=== PATIENT | male | born 1990 | race Caucasian/White ===

== ENCOUNTER 2017-08-09 11:09 | Emergency (ER) | payer MEDICARE ==
[~2017-08-09] VITALS: Ht 172.7 cm; Wt 84.1 kg
[2017-08-09] MEDS ORDERED: OLAN5TAB2 PO (11:13)
[2017-08-09 12:49] VITALS: BP 146/88
== END 2017-08-09 13:17 | disposition home or self-care (01) ==
LOC: EMS 11:11
DX: L08.9 Local infection of the skin and subcutaneous tissue, unspecified (principal); R03.0 Elevated blood-pressure reading, without diagnosis of hypertension; F17.210 Nicotine dependence, cigarettes, uncomplicated
CPT/HCPCS: 99283

== ENCOUNTER 2017-09-16 19:47 | Inpatient (IN) | payer MEDICARE, MEDICAID ==
[~2017-09-16] VITALS: Ht 172.7 cm; Wt 86.4 kg
[~2017-09-16 19:47] MED LIST: OLAN5TAB2 PO
[2017-09-16] MEDS ORDERED: OLAN10TA3 PO (20:04)
[2017-09-16 20:23] LABS: AMPHET/METH SCREEN,URINE NEGATIVE (NEGATIVE); BARBITURATE SCREEN, URINE NEGATIVE (NEGATIVE); BENZODIAZEPINES SCREEN,URINE NEGATIVE (NEGATIVE); CANNABINOID SCREEN,URINE NEGATIVE (NEGATIVE); COCAINE SCREEN,URINE NEGATIVE (NEGATIVE); METHADONE SCREEN, URINE NEGATIVE (NEGATIVE); OPIATE SCREEN,URINE NEGATIVE (NEGATIVE)
[2017-09-16 20:25] LABS: PHENCYCLIDINE SCREEN,URINE NEGATIVE (NEGATIVE)
[2017-09-16 20:35] LABS: BASOPHILS % (AUTO) 0.6 % (0.0-2.0); EOSINOPHILS % (AUTO) 1.4 % (1.0-6.0); HEMATOCRIT 44.1 % (41-53); HEMOGLOBIN 15.7 g/dL (13.5-17.5); LYMPHOCYTES # (AUTO) 1.6 K/uL (1.0-4.8); LYMPHOCYTES % (AUTO) 23.7 % (22.0-44.0); MEAN CORPUSCULAR HEMOGLOBIN 28.9 pg (26.0-34.0); MEAN CORPUSCULAR HGB CONC 35.6 G/dL (31.0-37.0); MEAN CORPUSCULAR VOLUME 81 fL (80-100); MONOCYTES # (AUTO) 0.7 K/uL (0.1-1.0); MONOCYTES % (AUTO) 10.1 % (2.0-9.0); NEUTROPHILS # (AUTO) 4.5 K/uL (1.8-7.7); NEUTROPHILS % (AUTO) 64.2 % (40.0-70.0); PLATELET COUNT (AUTO) 274 K/uL (150-450); RED BLOOD CELL COUNT(AUTO) 5.42 MIL/uL (4.50-5.90); RED CELL DISTRIBUTION WIDTH 16.5 % (11.5-14.5)
[2017-09-16] MEDS ORDERED: HALOPERIDOL 5 MG TABLET PO ONE (20:45)
[2017-09-16] MEDS ORDERED: ZOLPIDEM TARTRATE 10 MG TABLET PO PRN (20:45)
[2017-09-16] MEDS ORDERED: DiphenhydrAMINE HCL 25 MG CAPSULE PO ONE (20:45)
[2017-09-16] MEDS ORDERED: LORazepam 2 MG TABLET PO PRN (20:45)
[2017-09-16] MEDS ORDERED: LORazepam 2 MG TABLET PO ONE (20:45)
[2017-09-16] MEDS ORDERED: OLANZapine 5 MG RAPDIS TABLET PO PRN (20:45)
[2017-09-16 20:48] LABS: ANION GAP 7 mmol/L (8-16); CARBON DIOXIDE 29 mmol/L (22-29); CHLORIDE 102 mmol/L (98-107); CREATININE 1.03 mg/dL (0.60-1.30); GLOMERULAR FILTR. RATE CALC > 60 mL/min (>60); GLUCOSE,RANDOM 89 mg/dL (70-110); POTASSIUM 3.7 mmol/L (3.5-5.1); SODIUM SERUM 138 mmol/L (136-145); UREA NITROGEN, BLOOD 9 mg/dL (7-18)
[2017-09-16 20:56] LABS: ALANINE AMINOTRANSFERASE 98 U/L (12-78); ALBUMIN 4.1 g/dL (3.4-5.0); ALKALINE PHOSPHATASE 74 U/L (46-116); ASPARTATE AMINOTRANSFERASE 47 U/L (15-37); BILIRUBIN,TOTAL 0.5 mg/dL (0.1-1.0); TOTAL PROTEIN, SERUM 7.7 g/dL (6.4-8.2)
[2017-09-16 21:47] LABS: HEMOGLOBIN A1C 4.9 % (4.5-6.2)
[2017-09-16 21:55] LABS: CHOLESTEROL 139 mg/dL (131-200); FREE T4 (FREE THYROXINE) 1.03 ng/dL (0.76-1.46); HDL CHOLESTEROL 35 mg/dL (40-60); LDL CHOL (CALC.) 93 mg/dL (0-130); THYROID STIMULATING HORMONE 2.17 uIU/mL (0.36-3.74); TRIGLYCERIDES 56 mg/dL (15-150)
[2017-09-17] MEDS ORDERED: CloNIDine HCL 0.1 MG TABLET PO PRN (00:15)
[2017-09-17] MEDS ORDERED: IBUPROFEN 600 MG TABLET PO PRN (00:15)
[2017-09-17] MEDS ORDERED: ACETAMINOPHEN 325 MG TABLET PO PRN (00:15)
[2017-09-17 02:35] VITALS: BP 125/78
[2017-09-17 11:30] VITALS: BP 127/87
[2017-09-17] MEDS: OLANZapine 10 MG TABLET PO SCH (20:28)
[2017-09-17 23:11] VITALS: BP 127/59
[2017-09-18 08:12] VITALS: BP 130/68
[2017-09-18 08:17] LABS: HEMOGLOBIN A1C 4.6 % (4.5-6.2)
[2017-09-18 08:26] LABS: ALANINE AMINOTRANSFERASE 77 U/L (12-78); ALBUMIN 3.9 g/dL (3.4-5.0); ALKALINE PHOSPHATASE 66 U/L (46-116); ANION GAP 7 mmol/L (8-16); ASPARTATE AMINOTRANSFERASE 35 U/L (15-37); BILIRUBIN,TOTAL 0.6 mg/dL (0.1-1.0); CALCIUM, TOTAL 8.7 mg/dL (8.8-10.5); CARBON DIOXIDE 26 mmol/L (22-29); CHLORIDE 105 mmol/L (98-107); GLOMERULAR FILTR. RATE CALC > 60 mL/min (>60); GLUCOSE,RANDOM 87 mg/dL (70-110); POTASSIUM 3.9 mmol/L (3.5-5.1); SODIUM SERUM 138 mmol/L (136-145); TOTAL PROTEIN, SERUM 7.3 g/dL (6.4-8.2); UREA NITROGEN, BLOOD 14 mg/dL (7-18)
[2017-09-18 08:49] LABS: CHOL/HDL RATIO 4.5 (4.2-7.3); CHOLESTEROL 134 mg/dL (131-200); CREATINE KINASE MB 1.3 ng/mL (0-5); CREATINE KINASE, TOTAL 152 U/L (39-308); FREE T4 (FREE THYROXINE) 0.93 ng/dL (0.76-1.46); HDL CHOLESTEROL 30 mg/dL (40-60); LDL CHOL (CALC.) 87 mg/dL (0-130); THYROID STIMULATING HORMONE 1.23 uIU/mL (0.36-3.74); TRIGLYCERIDES 85 mg/dL (15-150)
[2017-09-18 12:29] LABS: FOLATE SERUM 10.4 ng/mL (5.4-)
[2017-09-18 17:00] VITALS: BP 111/71
[2017-09-18] MEDS: OLANZapine 10 MG TABLET PO SCH (20:13)
[2017-09-19 08:30] VITALS: BP 135/75
[2017-09-19] MEDS ORDERED: BISACODYL 5 MG EC TABLET PO PRN (09:15)
[2017-09-19 17:00] VITALS: BP 121/63
[2017-09-19] MEDS: OLANZapine 10 MG TABLET PO SCH (21:01)
[2017-09-20 09:39] VITALS: BP 128/78
[2017-09-20] MEDS: FLUoxetine HCL 20 MG CAPSULE PO SCH (12:28)
[2017-09-20 17:00] VITALS: BP 112/67
[2017-09-20] MEDS: OLANZapine 10 MG TABLET PO SCH (20:51)
[2017-09-21] MEDS: FLUoxetine HCL 20 MG CAPSULE PO SCH (09:10)
[2017-09-21 10:27] VITALS: BP 138/75
[2017-09-21 17:00] VITALS: BP 109/61
[2017-09-21] MEDS: OLANZapine 10 MG TABLET PO SCH (20:47)
[2017-09-22 08:14] VITALS: BP 131/79
[2017-09-22] MEDS: FLUoxetine HCL 20 MG CAPSULE PO SCH (09:07)
[2017-09-22 16:30] VITALS: BP 117/64
[2017-09-22] MEDS: OLANZapine 10 MG TABLET PO SCH (20:10)
[2017-09-23 08:00] VITALS: BP 122/72
[2017-09-23] MEDS: FLUoxetine HCL 20 MG CAPSULE PO SCH (08:40)
[2017-09-23 18:38] VITALS: BP 127/75
[2017-09-23] MEDS: OLANZapine 10 MG TABLET PO SCH (20:10)
[2017-09-24 09:00] VITALS: BP 122/73
[2017-09-24] MEDS: FLUoxetine HCL 20 MG CAPSULE PO SCH (09:44)
[2017-09-24 17:53] VITALS: BP 113/67
[2017-09-24] MEDS: OLANZapine 10 MG TABLET PO SCH (20:07)
[2017-09-25] MEDS: FLUoxetine HCL 20 MG CAPSULE PO SCH (08:21)
[2017-09-25 09:37] VITALS: BP 127/77
[2017-09-25 17:33] VITALS: BP 122/68
[2017-09-25] MEDS: OLANZapine 10 MG TABLET PO SCH (20:11)
[2017-09-26 08:23] VITALS: BP 144/80
[2017-09-26] MEDS: FLUoxetine HCL 20 MG CAPSULE PO SCH (09:43)
[2017-09-26 19:33] VITALS: BP 131/76
[2017-09-26] MEDS: OLANZapine 10 MG TABLET PO SCH (20:18)
[2017-09-27 08:30] VITALS: BP 137/79
[2017-09-27] MEDS: FLUoxetine HCL 20 MG CAPSULE PO SCH (09:07)
[2017-09-27 16:52] VITALS: BP 129/72
[2017-09-27] MEDS: OLANZapine 10 MG TABLET PO SCH (20:38)
[2017-09-28 08:00] VITALS: BP 131/64
[2017-09-28] MEDS: FLUoxetine HCL 20 MG CAPSULE PO SCH (08:52)
[2017-09-28 18:53] VITALS: BP 107/67
[2017-09-28] MEDS: OLANZapine 10 MG TABLET PO SCH (20:23)
[2017-09-29 08:00] VITALS: BP 136/65
[2017-09-29] MEDS: FLUoxetine HCL 20 MG CAPSULE PO SCH (08:37)
[2017-09-29 16:49] VITALS: BP 121/78
[2017-09-29] MEDS: OLANZapine 10 MG TABLET PO SCH (20:02)
[2017-09-30] MEDS: FLUoxetine HCL 20 MG CAPSULE PO SCH (08:23)
[2017-09-30 09:03] VITALS: BP 132/60
[2017-09-30] MEDS: OLANZapine 10 MG TABLET PO SCH (20:03)
[2017-09-30 20:24] VITALS: BP 123/73
[2017-10-01] MEDS: FLUoxetine HCL 20 MG CAPSULE PO SCH (08:53)
[2017-10-01 09:30] VITALS: BP 114/61
[2017-10-01 18:22] VITALS: BP 120/65
[2017-10-01] MEDS: OLANZapine 10 MG TABLET PO SCH (20:22)
[2017-10-02 08:12] VITALS: BP 137/82
[2017-10-02] MEDS: FLUoxetine HCL 20 MG CAPSULE PO SCH (08:47)
[2017-10-02 18:42] VITALS: BP 125/72
[2017-10-02] MEDS: OLANZapine 10 MG TABLET PO SCH (20:23)
[2017-10-03 08:30] VITALS: BP 126/76
[2017-10-03] MEDS: FLUoxetine HCL 20 MG CAPSULE PO SCH (10:17)
[2017-10-03 17:22] VITALS: BP 116/74
[2017-10-03 17:22] LABS: GLUCOMETER DEV NAME(LOC) 3EI B; GLUCOSE,POINT OF CARE 106 MG/DL (70-110)
[2017-10-03] MEDS: OLANZapine 10 MG TABLET PO SCH (20:40)
[2017-10-04] MEDS: FLUoxetine HCL 20 MG CAPSULE PO SCH (08:25)
[2017-10-04 10:04] VITALS: BP 130/82
[2017-10-04 17:59] VITALS: BP 112/72
[2017-10-04] MEDS: OLANZapine 10 MG TABLET PO SCH (20:22)
[2017-10-05] MEDS ORDERED: FLUO-191 PO (04:58)
[2017-10-05] MEDS: FLUoxetine HCL 20 MG CAPSULE PO SCH (08:16)
[2017-10-05 09:09] VITALS: BP 131/82
== END 2017-10-05 10:20 | disposition home or self-care (01) | DRG 885 ==
LOC: EMS 19:48 → 3EX 21:56
PROVIDERS: ADMIT Psychiatry & Neurology Psychiatry; ATTEND Psychiatry & Neurology Psychiatry
DX: F20.0 Paranoid schizophrenia (principal); R45.851 Suicidal ideations; I10 Essential (primary) hypertension; K59.00 Constipation, unspecified; F17.210 Nicotine dependence, cigarettes, uncomplicated; F15.90 Other stimulant use, unspecified, uncomplicated; R79.89 Other specified abnormal findings of blood chemistry; R00.0 Tachycardia, unspecified
CPT/HCPCS: 80074; 82306; 82607; 82746; 83036; 83735; 84439; 84443; 99285; 99406; G0480

== ENCOUNTER 2018-07-19 12:12 | Inpatient (IN) | payer MEDICARE, MEDICAID ==
[~2018-07-19] VITALS: Ht 170.2 cm; Wt 68.2 kg
[~2018-07-19 12:12] MED LIST changes: +FLUO-191 PO; +OLAN10TA3 PO; -OLAN5TAB2 PO
[2018-07-19 15:42] VITALS: BP 102/60
[2018-07-19] MEDS ORDERED: HALOPERIDOL 5 MG TABLET PO PRN (16:30)
[2018-07-19] MEDS ORDERED: ZOLPIDEM TARTRATE 10 MG TABLET PO PRN (16:30)
[2018-07-19 19:33] VITALS: BP 135/78
[2018-07-19] MEDS ORDERED: GuaiFENesin/D-METHORPHAN [SUGAR-FREE] 200-20MG/10 ML SYRUP UDCUP PO PRN (19:45)
[2018-07-19] MEDS ORDERED: CloNIDine HCL 0.1 MG TABLET PO PRN (19:45)
[2018-07-19] MEDS ORDERED: IBUPROFEN 400 MG TABLET PO PRN (19:45)
[2018-07-19] MEDS ORDERED: MAG HYDROX/AL HYDROX/SIMETH ES 30 ML SUSPENSION UDCUP PO PRN (19:45)
[2018-07-19] MEDS ORDERED: NICOTINE 14 MG/24 HOUR PATCH TD PRN (19:45)
[2018-07-19] MEDS ORDERED: ONDANSETRON HCL 4 MG TABLET PO PRN (19:45)
[2018-07-19] MEDS ORDERED: MAGNESIUM HYDROXIDE SUSPENSION 30 ML UDCUP PO PRN (19:45)
[2018-07-19] MEDS ORDERED: LOPERAMIDE HCL 2 MG CAPSULE PO PRN (19:45)
[2018-07-19] MEDS ORDERED: DOCUSATE SODIUM 100 MG CAPSULE PO PRN (19:45)
[2018-07-19] MEDS ORDERED: ALBUTEROL SULFATE HFA 90 MCG/PUFF 8 GM INHALER IH PRN (19:45)
[2018-07-19] MEDS ORDERED: PETROLATUM,WHITE 71 GM JELLY TP PRN (19:45)
[2018-07-19] MEDS ORDERED: ACETAMINOPHEN 325 MG TABLET PO PRN (19:45)
[2018-07-20 06:41] VITALS: BP 132/81
[2018-07-20 08:37] VITALS: BP 115/60
[2018-07-20 09:00] LABS: BASOPHILS % (AUTO) 0.4 % (0.0-2.0); EOSINOPHILS % (AUTO) 1.8 % (1.0-6.0); HEMATOCRIT 37.5 % (41-53); HEMOGLOBIN 12.5 g/dL (13.5-17.5); LYMPHOCYTES # (AUTO) 1.5 K/uL (1.0-4.8); LYMPHOCYTES % (AUTO) 39.2 % (22.0-44.0); MEAN CORPUSCULAR HEMOGLOBIN 26.7 pg (26.0-34.0); MEAN CORPUSCULAR HGB CONC 33.2 G/dL (31.0-37.0); MEAN CORPUSCULAR VOLUME 81 fL (80-100); MONOCYTES # (AUTO) 0.4 K/uL (0.1-1.0); MONOCYTES % (AUTO) 10.7 % (2.0-9.0); NEUTROPHILS # (AUTO) 1.9 K/uL (1.8-7.7); NEUTROPHILS % (AUTO) 47.9 % (40.0-70.0); PLATELET COUNT (AUTO) 234 K/uL (150-450); RED BLOOD CELL COUNT(AUTO) 4.66 MIL/uL (4.50-5.90); RED CELL DISTRIBUTION WIDTH 16.9 % (11.5-14.5)
[2018-07-20 09:42] LABS: ALANINE AMINOTRANSFERASE 17 U/L (12-78); ALBUMIN 3.3 g/dL (3.4-5.0); ALKALINE PHOSPHATASE 54 U/L (46-116); ANION GAP 5 mmol/L (8-16); ASPARTATE AMINOTRANSFERASE 14 U/L (15-37); BILIRUBIN,TOTAL 0.3 mg/dL (0.1-1.0); CALCIUM, TOTAL 8.9 mg/dL (8.8-10.5); CARBON DIOXIDE 29 mmol/L (22-29); CHLORIDE 108 mmol/L (98-107); CHOL/HDL RATIO 3.4 (4.2-7.3); CHOLESTEROL 89 mg/dL (131-200); CREATININE 0.75 mg/dL (0.60-1.30); FREE T4 (FREE THYROXINE) 0.94 ng/dL (0.76-1.46); GLOMERULAR FILTR. RATE CALC > 60 mL/min (>60); GLUCOSE,RANDOM 79 mg/dL (70-110); HDL CHOLESTEROL 26 mg/dL (40-60); LDL CHOL (CALC.) 55 mg/dL (0-130); POTASSIUM 4.7 mmol/L (3.5-5.1); SODIUM SERUM 142 mmol/L (136-145); THYROID STIMULATING HORMONE 0.99 uIU/mL (0.36-3.74); TOTAL PROTEIN, SERUM 6.5 g/dL (6.4-8.2); TRIGLYCERIDES 40 mg/dL (15-150); UREA NITROGEN, BLOOD 12 mg/dL (7-18)
[2018-07-20] MEDS: FLUoxetine HCL 20 MG CAPSULE PO SCH (11:45)
[2018-07-20 16:05] VITALS: BP 120/70
[2018-07-20] MEDS: OLANZapine 10 MG TABLET PO SCH (20:59)
[2018-07-21 05:00] VITALS: BP 112/62
[2018-07-21 08:11] VITALS: BP 109/69
[2018-07-21] MEDS: LORazepam 2 MG TABLET PO PRN (08:43)
[2018-07-21] MEDS: FLUoxetine HCL 20 MG CAPSULE PO SCH (08:43)
[2018-07-21 16:14] VITALS: BP 105/62
[2018-07-21] MEDS: OLANZapine 10 MG TABLET PO SCH (20:38)
[2018-07-22 05:58] VITALS: BP 124/82
[2018-07-22 08:10] VITALS: BP 107/55
[2018-07-22] MEDS: LORazepam 2 MG TABLET PO PRN (08:34)
[2018-07-22] MEDS: FLUoxetine HCL 20 MG CAPSULE PO SCH (08:34)
[2018-07-22 16:43] VITALS: BP 114/80
[2018-07-22] MEDS: MUPIROCIN CALCIUM 2% 22 GM OINTMENT NASAL SCH (17:11)
[2018-07-22] MEDS: OLANZapine 10 MG TABLET PO SCH (20:32)
[2018-07-23 00:31] VITALS: BP 106/68
[2018-07-23 08:16] VITALS: BP 121/75
[2018-07-23] MEDS: FLUoxetine HCL 20 MG CAPSULE PO SCH (09:09)
[2018-07-23] MEDS: MUPIROCIN CALCIUM 2% 22 GM OINTMENT NASAL SCH ×2 (09:09→16:47)
[2018-07-23 16:59] VITALS: BP 121/86
[2018-07-23] MEDS: OLANZapine 10 MG TABLET PO SCH (20:44)
[2018-07-24 00:02] VITALS: BP 118/72
[2018-07-24] MEDS: FLUoxetine HCL 20 MG CAPSULE PO SCH (08:11)
[2018-07-24] MEDS: MUPIROCIN CALCIUM 2% 22 GM OINTMENT NASAL SCH ×2 (08:11→16:27)
[2018-07-24 08:30] VITALS: BP 128/62
[2018-07-24 16:35] VITALS: BP 107/78
[2018-07-24] MEDS: OLANZapine 10 MG TABLET PO SCH (20:57)
[2018-07-25 06:08] VITALS: BP 110/68
[2018-07-25] MEDS: MUPIROCIN CALCIUM 2% 22 GM OINTMENT NASAL SCH ×2 (08:36→16:26)
[2018-07-25] MEDS: FLUoxetine HCL 20 MG CAPSULE PO SCH (08:39)
[2018-07-25 08:50] VITALS: BP 121/66
[2018-07-25 16:01] VITALS: BP 119/58
[2018-07-25] MEDS: OLANZapine 10 MG TABLET PO SCH (20:30)
[2018-07-26 06:58] VITALS: BP 121/68
[2018-07-26 08:30] LABS: BASOPHILS % (AUTO) 0.5 % (0.0-2.0); EOSINOPHILS % (AUTO) 2.1 % (1.0-6.0); HEMATOCRIT 39.7 % (41-53); HEMOGLOBIN 13.3 g/dL (13.5-17.5); LYMPHOCYTES # (AUTO) 1.7 K/uL (1.0-4.8); LYMPHOCYTES % (AUTO) 44.3 % (22.0-44.0); MEAN CORPUSCULAR HEMOGLOBIN 26.7 pg (26.0-34.0); MEAN CORPUSCULAR HGB CONC 33.4 G/dL (31.0-37.0); MEAN CORPUSCULAR VOLUME 80 fL (80-100); MONOCYTES # (AUTO) 0.5 K/uL (0.1-1.0); MONOCYTES % (AUTO) 13.1 % (2.0-9.0); NEUTROPHILS # (AUTO) 1.5 K/uL (1.8-7.7); PLATELET COUNT (AUTO) 271 K/uL (150-450); RED BLOOD CELL COUNT(AUTO) 4.97 MIL/uL (4.50-5.90); RED CELL DISTRIBUTION WIDTH 16.6 % (11.5-14.5)
[2018-07-26] MEDS: MUPIROCIN CALCIUM 2% 22 GM OINTMENT NASAL SCH ×2 (09:07→16:04)
[2018-07-26] MEDS: FLUoxetine HCL 20 MG CAPSULE PO SCH (09:07)
[2018-07-26 09:25] VITALS: BP 107/69
[2018-07-26 16:28] VITALS: BP 126/75
[2018-07-26] MEDS: OLANZapine 10 MG TABLET PO SCH (20:45)
[2018-07-27 06:00] VITALS: BP 128/74
[2018-07-27 08:21] VITALS: BP 121/76
[2018-07-27] MEDS: FLUoxetine HCL 20 MG CAPSULE PO SCH (08:38)
[2018-07-27] MEDS: MUPIROCIN CALCIUM 2% 22 GM OINTMENT NASAL SCH ×2 (08:38→16:32)
[2018-07-27 16:08] VITALS: BP 120/60
[2018-07-27] MEDS: OLANZapine 10 MG TABLET PO SCH (20:14)
[2018-07-28 06:15] VITALS: BP 116/64
[2018-07-28 08:13] VITALS: BP 123/76
[2018-07-28] MEDS: FLUoxetine HCL 20 MG CAPSULE PO SCH (08:39)
[2018-07-28] MEDS: MUPIROCIN CALCIUM 2% 22 GM OINTMENT NASAL SCH (08:39)
[2018-07-28 16:05] VITALS: BP 122/67
[2018-07-28] MEDS: OLANZapine 10 MG TABLET PO SCH (20:30)
[2018-07-29 05:45] VITALS: BP 121/76
[2018-07-29 08:17] VITALS: BP 124/73
[2018-07-29] MEDS: FLUoxetine HCL 20 MG CAPSULE PO SCH (08:44)
[2018-07-29 16:14] VITALS: BP 111/77
[2018-07-29] MEDS: OLANZapine 10 MG TABLET PO SCH (20:04)
[2018-07-30 05:40] VITALS: BP 110/86
== END 2018-07-30 07:10 | disposition home or self-care (01) | DRG 885 ==
LOC: B3A 16:35 → B2S 07-22 12:24
PROVIDERS: ADMIT Psychiatry & Neurology Psychiatry; ATTEND Psychiatry & Neurology Psychiatry
DX: F20.0 Paranoid schizophrenia (principal); D64.9 Anemia, unspecified; D72.819 Decreased white blood cell count, unspecified; F17.200 Nicotine dependence, unspecified, uncomplicated; K59.00 Constipation, unspecified; Z59.0 Homelessness; Z65.3 Problems related to other legal circumstances; S00.81XA Abrasion of other part of head, initial encounter; X58.XXXA Exposure to other specified factors, initial encounter; Y93.89 Activity, other specified; Y92.89 Other specified places as the place of occurrence of the external cause; F19.10 Other psychoactive substance abuse, uncomplicated
CPT/HCPCS: 83036; 84439; 84443; 87081

== ENCOUNTER 2020-07-09 02:01 | Inpatient (IN) | payer MEDICARE ==
[~2020-07-09] VITALS: Ht 172.7 cm; Wt 65.8 kg
[2020-07-09] MEDS ORDERED: HALOPERIDOL 5 MG TABLET PO PRN (03:45)
[2020-07-09] MEDS ORDERED: LORazepam 2 MG TABLET PO PRN (03:45)
[2020-07-09] MEDS ORDERED: ZOLPIDEM TARTRATE 10 MG TABLET PO PRN (03:45)
[2020-07-09 04:46] VITALS: BP 117/68
[2020-07-09] MEDS ORDERED: INFLUENZA VIRUS VACCINE QVS 2020-21 (6MO+)/PF 60 MCG/0.5 ML SYRINGE IM ONE (05:15)
[2020-07-09] MEDS ORDERED: BACITRACIN 28 GM OINTMENT TP PRN (06:15)
[2020-07-09] MEDS ORDERED: ALBUTEROL SULFATE HFA 90 MCG/PUFF 8 GM INHALER IH PRN (06:15)
[2020-07-09] MEDS ORDERED: OMEPRAZOLE 20 MG CAPSULE PO PRN (06:15)
[2020-07-09] MEDS ORDERED: ONDANSETRON HCL 4 MG TABLET PO PRN (06:15)
[2020-07-09] MEDS ORDERED: IBUPROFEN 600 MG TABLET PO PRN (06:15)
[2020-07-09] MEDS ORDERED: DOCUSATE SODIUM 100 MG CAPSULE PO PRN (06:15)
[2020-07-09] MEDS ORDERED: PETROLATUM,WHITE 28 GM JELLY TP PRN (06:15)
[2020-07-09] MEDS ORDERED: LOPERAMIDE HCL 2 MG CAPSULE PO PRN (06:15)
[2020-07-09] MEDS ORDERED: MAGNESIUM HYDROXIDE SUSPENSION 30 ML UDCUP PO PRN (06:15)
[2020-07-09] MEDS ORDERED: CloNIDine HCL 0.1 MG TABLET PO PRN (06:15)
[2020-07-09] MEDS ORDERED: MAG HYDROX/AL HYDROX/SIMETH ES 30 ML SUSPENSION UDCUP PO PRN (06:15)
[2020-07-09] MEDS ORDERED: ACETAMINOPHEN 325 MG TABLET PO PRN (06:15)
[2020-07-09] MEDS ORDERED: BENZOCAINE/MENTHOL LOZENGE PO PRN (06:15)
[2020-07-09 09:12] VITALS: BP 112/63
[2020-07-09] MEDS: FLUoxetine HCL 20 MG CAPSULE PO SCH (11:50)
[2020-07-09 16:28] VITALS: BP 106/64
[2020-07-09] MEDS ORDERED: LITHIUM CARBONATE 300 MG CAPSULE PO SCH (17:00)
[2020-07-09] MEDS ORDERED: HALOPERIDOL 10 MG TABLET PO SCH (21:00)
[2020-07-09] MEDS ORDERED: OLANZapine 10 MG TABLET PO SCH (21:00)
[2020-07-10 00:44] VITALS: BP 103/62
[2020-07-10 08:18] LABS: BASOPHILS % (AUTO) 0.6 % (0.0-2.0); EOSINOPHILS % (AUTO) 3.6 % (1.0-6.0); HEMATOCRIT 39.6 % (41-53); HEMOGLOBIN 13.2 g/dL (13.5-17.5); LYMPHOCYTES # (AUTO) 1.3 K/uL (1.0-4.8); LYMPHOCYTES % (AUTO) 35.5 % (22.0-44.0); MEAN CORPUSCULAR HGB CONC 33.3 G/dL (31.0-37.0); MEAN CORPUSCULAR VOLUME 84 fL (80-100); MONOCYTES # (AUTO) 0.3 K/uL (0.1-1.0); MONOCYTES % (AUTO) 8.4 % (2.0-9.0); NEUTROPHILS # (AUTO) 1.9 K/uL (1.8-7.7); NEUTROPHILS % (AUTO) 51.9 % (40.0-70.0); PLATELET COUNT (AUTO) 224 K/uL (150-450); RED CELL DISTRIBUTION WIDTH 15.8 % (11.5-14.5)
[2020-07-10 08:24] VITALS: BP 107/54
[2020-07-10 08:42] LABS: HEMOGLOBIN A1C 4.8 % (3.8-5.6)
[2020-07-10 08:55] LABS: ALANINE AMINOTRANSFERASE 28 U/L (12-78); ALBUMIN 3.7 g/dL (3.4-5.0); ALKALINE PHOSPHATASE 50 U/L (46-116); ANION GAP 6 mmol/L (8-16); ASPARTATE AMINOTRANSFERASE 17 U/L (15-37); BILIRUBIN,TOTAL 0.2 mg/dL (0.1-1.0); CALCIUM, TOTAL 8.7 mg/dL (8.8-10.5); CARBON DIOXIDE 29 mmol/L (22-29); CHLORIDE 111 mmol/L (98-107); CHOLESTEROL 111 mg/dL (131-200); CREATININE 0.85 mg/dL (0.60-1.30); GLOMERULAR FILTR. RATE CALC > 60 mL/min (>60); GLUCOSE,RANDOM 84 mg/dL (70-110); HDL CHOLESTEROL 37 mg/dL (40-60); LDL CHOL (CALC.) 65 mg/dL (0-130); POTASSIUM 5.1 mmol/L (3.5-5.1); SODIUM SERUM 146 mmol/L (136-145); THYROID STIMULATING HORMONE 1.43 uIU/mL (0.36-3.74); TOTAL PROTEIN, SERUM 7.1 g/dL (6.4-8.2); TRIGLYCERIDES 47 mg/dL (15-150); UREA NITROGEN, BLOOD 9 mg/dL (7-18)
[2020-07-10] MEDS: FLUoxetine HCL 20 MG CAPSULE PO SCH (09:41)
== END 2020-07-10 12:45 | disposition home or self-care (01) | DRG 885 ==
LOC: B2X 03:44
PROVIDERS: ADMIT Psychiatry & Neurology Psychiatry; ATTEND Psychiatry & Neurology Psychiatry
DX: F20.9 Schizophrenia, unspecified (principal); F41.9 Anxiety disorder, unspecified; G47.00 Insomnia, unspecified; F15.10 Other stimulant abuse, uncomplicated; F19.10 Other psychoactive substance abuse, uncomplicated; F10.10 Alcohol abuse, uncomplicated; Y90.9 Presence of alcohol in blood, level not specified; Z28.21 Immunization not carried out because of patient refusal
CPT/HCPCS: 83036; 84439; 84443; 87081

== ENCOUNTER 2022-01-24 18:09 | Emergency (ER) | payer MEDICAID, MEDICARE ==
[~2022-01-24] VITALS: Ht 172.7 cm; Wt 75.0 kg
[~2022-01-24 18:09] MED LIST changes: +FLUO-177 PO; -FLUO-191 PO; -OLAN10TA3 PO; +OLAN10TA74 PO
[2022-01-25 06:46] VITALS: BP 128/64
== END 2022-01-25 08:14 | disposition home or self-care (01) ==
LOC: EMS 18:09
DX: G25.9 Extrapyramidal and movement disorder, unspecified (principal); F20.9 Schizophrenia, unspecified; F17.210 Nicotine dependence, cigarettes, uncomplicated; F15.90 Other stimulant use, unspecified, uncomplicated; F10.21 Alcohol dependence, in remission
CPT/HCPCS: 99283; Z7502